=== PATIENT | male | born 1960 ===

== ENCOUNTER 2019-07-26 17:50 | Emergency (ER) | payer MEDICAID ==
[~2019-07-26] VITALS: Ht 182.9 cm; Wt 86.4 kg
[2019-07-26 17:53] VITALS: Ht 182.9 cm; Wt 86.4 kg
[2019-07-26 19:48] LABS: BASOPHILS 0.4 % (0-2); EOSINOPHILS 7.6 % (0-7); HEMATOCRIT 37.6 % (42.0-54.0); HEMOGLOBIN 12.2 g/dL (13.5-17.5); IMMATURE GRANULOCYTES 0.1 % (0-5); LYMPHOCYTES 34.1 % (15-50); MCH 30.4 pg (26.0-34.0); MCHC 32.4 g/dL (31.0-37.0); MCV 93.8 fL (80.0-100.0); MEAN PLATELET VOLUME 8.9 fL (7.4-10.4); MONOCYTES 7.3 % (2-11); NEUTROPHILS 50.5 % (40-80); PLATELET COUNT 316 10x3/uL (130-400); RBC 4.01 10x6/uL (4.20-6.10); WBC 7.9 10x3/uL (4.8-10.8)
[2019-07-26 20:02] LABS: ANION GAP 11.7 mmol/L (8-16); CALCIUM 8.8 mg/dL (8.5-10.1); CREATININE - SERUM 1.1 mg/dL (0.6-1.3); POTASSIUM - SERUM 3.7 mmol/L (3.5-5.1)
[2019-07-26 20:07] LABS: ALBUMIN 3.2 g/dL (3.4-5.0); BILIRUBIN - TOTAL 0.31 mg/dL (0.2-1.3); PROTEIN - SERUM 6.5 g/dL (6.4-8.2)
[2019-07-26 21:46] LABS: BILIRUBIN NEGATIVE (NEGATIVE); GLUCOSE NEGATIVE (NEGATIVE); KETONE NEGATIVE (NEGATIVE); NITRITE NEGATIVE (NEGATIVE); SPECIFIC GRAVITY 1.025 (1.005-1.020); UROBILINOGEN NORMAL (NORMAL)
[2019-07-26 21:59] LABS: UDS - AMPHET POSITIVE QUAL (NEGATIVE); UDS - BARB NEGATIVE QUAL (NEGATIVE); UDS - BENZO NEGATIVE QUAL (NEGATIVE); UDS - COCAINE NEGATIVE QUAL (NEGATIVE); UDS - OPIATE NEGATIVE QUAL (NEGATIVE); UDS - PCP NEGATIVE QUAL (NEGATIVE); UDS - THC NEGATIVE QUAL (NEGATIVE)
[2019-07-27 02:08] VITALS: BP 80/50
== END 2019-07-27 02:37 ==
LOC: D.ER 17:50
PROVIDERS: Family Medicine
DX: R41.82 Altered mental status, unspecified (principal); F15.90 Other stimulant use, unspecified, uncomplicated